=== PATIENT | female | born 1985 | race Caucasian/White ===

== ENCOUNTER 2019-03-19 14:58 | Inpatient (IN) | payer OTHER ==
[~2019-03-19] VITALS: Ht 165.1 cm; Wt 72.7 kg
[~2019-03-19 14:58] MED LIST: CYCLOBENZAPRINE10 MG PO; DEMEROL50 MG PO; VIMOVO 375-201 EACH PO
--- NOTE | 2019-03-19 15:53 | NUR ---
DIRECT ADMIT FROM DR. CONKLIN OFFICE. SHE IS ALERT ABLE TO VOICE NEEDS. RESP WITH SOME LABOR NOTED. BBS ARE DIMINISHED WITH WHEEZES NOTED TO RIGHT SIDE. O2 WAS PLACED ON HER AT 2 L/M PER N/C DUE TO SOB. O2 SAT IS 96% ON R/A. SKIN IS W/D SHE STATES SHE HAS BEEN COUGHING AND FEELING BAD FOR A WEEK. SPUTUM IS BLOODY IN COLOR WHEN SHE COUGHS IT UP. ORIENT TO ROOM INCLUDING USE OF CL. SHE IS SITTING UP IN RECLINER IN ROOM.
[2019-03-19] MEDS ORDERED: ZITHROMAX250 MG PO (15:55)
[2019-03-19] MEDS ORDERED: WELLBUTRIN SR150 MG (15:56)
[2019-03-19] MEDS ORDERED: CLARITIN 10 MG10 MG (15:56)
[2019-03-19 16:00] VITALS: BP 166/98
[2019-03-19 16:26] LABS: BASOPHILS 0.1 % (0-2); EOSINOPHILS 0.3 % (0-7); HEMATOCRIT 40.2 % (36.0-48.0); IMMATURE GRANULOCYTES 0.5 % (0-5); LYMPHOCYTES 6.6 % (15-50); MCH 27.5 pg (26.0-34.0); MCHC 32.3 g/dL (31.0-37.0); MCV 85.2 fL (80.0-100.0); MEAN PLATELET VOLUME 10.3 fL (7.4-10.4); MONOCYTES 5.2 % (2-11); NEUTROPHILS 87.3 % (40-80); RBC 4.72 10x6/uL (4.00-5.40); RDW 13.5 % (11.5-14.5); WBC 14.9 10x3/uL (4.8-10.8)
[2019-03-19 16:30] LABS: ALBUMIN 3.4 g/dL (3.4-5.0); ALKALINE PHOSPHATASE 119 U/L (46-116); ALT (SGPT) 18 U/L (10-68); BILIRUBIN - TOTAL 0.76 mg/dL (0.2-1.3); CALC OSMOLALITY 273 mosm/kg (275-300); CALCIUM 8.8 mg/dL (8.5-10.1); CARBON DIOXIDE 25.2 mmol/L (21.0-32.0); CHLORIDE - SERUM 101 mmol/L (98-107); CREATININE - SERUM 0.7 mg/dL (0.6-1.3); GLUCOSE 103 mg/dL (74-106); POTASSIUM - SERUM 3.7 mmol/L (3.5-5.1); PROTEIN - SERUM 7.6 g/dL (6.4-8.2); SODIUM 138 mmol/L (136-145); UREA NITROGEN 7 mg/dL (7-18); eGFR NON AFRICAN AMERICAN > 90 mL/min (90-120)
[2019-03-19 16:48] LABS: PLATELET COUNT 272 10x3/uL (130-400)
--- NOTE | 2019-03-19 18:30 | NUR ---
SPOKE WITH ZANDER FISHMAN CONCERNING HER PAIN AND COUGH. NEW ORDERS WERE GIVEN.
--- NOTE | 2019-03-19 18:40 | NUR ---
IV SITE IS INFILTRATED AT THIS TIME, WARM TOWEL WAS APPLIED AND I LET ONCOMING SHIFT KNOW OF NEED FOR NEW ONE AND NEED FOR LEVAQUIN THAT I STARTED BUT WAS UNABLE TO COMPLETE.
--- NOTE | 2019-03-19 18:55 | NUR ---
EVENING ROUNDS COMPLETE. PT SITTING UP ON SIDE OF BED WITH FAMILY AT BEDSIDE. NO SIGNS OF DISTRESS. AAOX4. PT DENIES ANY NEEDS AT THIS TIME. PT HAS NO IV ACCESS AT THIS TIME. CL IN REACH, BED IN LOWEST POSITION.
[2019-03-19 19:32] VITALS: BP 166/80; Ht 165.1 cm; Wt 72.7 kg
[2019-03-19 20:48] VITALS: BP 124/79
[2019-03-20 00:02] VITALS: BP 116/73
[2019-03-20 04:30] VITALS: BP 135/78
[2019-03-20 05:41] LABS: BASOPHILS 0.1 % (0-2); EOSINOPHILS 0.7 % (0-7); HEMATOCRIT 35.9 % (36.0-48.0); HEMOGLOBIN 11.5 g/dL (12-16); IMMATURE GRANULOCYTES 0.4 % (0-5); LYMPHOCYTES 7.5 % (15-50); MCH 27.3 pg (26.0-34.0); MCV 85.1 fL (80.0-100.0); MEAN PLATELET VOLUME 10.3 fL (7.4-10.4); MONOCYTES 7.7 % (2-11); NEUTROPHILS 83.6 % (40-80); PLATELET COUNT 251 10x3/uL (130-400); RBC 4.22 10x6/uL (4.00-5.40); RDW 13.6 % (11.5-14.5); WBC 12.1 10x3/uL (4.8-10.8)
[2019-03-20 06:05] LABS: ALBUMIN 2.7 g/dL (3.4-5.0); ALKALINE PHOSPHATASE 113 U/L (46-116); ALT (SGPT) 16 U/L (10-68); BILIRUBIN - TOTAL 0.72 mg/dL (0.2-1.3); CALC OSMOLALITY 273 mosm/kg (275-300); CALCIUM 8.4 mg/dL (8.5-10.1); CARBON DIOXIDE 23.8 mmol/L (21.0-32.0); CHLORIDE - SERUM 102 mmol/L (98-107); CREATININE - SERUM 0.6 mg/dL (0.6-1.3); GLUCOSE 117 mg/dL (74-106); PHOSPHOROUS 3.4 mg/dL (2.5-4.9); POTASSIUM - SERUM 3.4 mmol/L (3.5-5.1); PROTEIN - SERUM 6.3 g/dL (6.4-8.2); SODIUM 137 mmol/L (136-145); UREA NITROGEN 9 mg/dL (7-18); eGFR NON AFRICAN AMERICAN > 90 mL/min (90-120)
--- NOTE | 2019-03-20 07:10 | NUR ---
PT RESTING, EYES CLOSED. RR EVEN AND UNLABORED. NO DISTRESS NOTED. BED IN LOWEST POSITION. WILL CONTINUE TO MONITOR.
[2019-03-20 08:00] VITALS: BP 131/79
[2019-03-20 12:00] VITALS: BP 135/72
[2019-03-20 16:00] VITALS: BP 148/77
--- NOTE | 2019-03-20 16:19 | MORECARE ---
CASE MANAGEMENT DISCHARGE SUMMARY PATIENT: SUKHI NEGRON UNIT: [id number] ADM DATE: 03/19/19 AGE: 33 : 85 SEX: F ROOM/BED: D.2106 AUTHOR: LEON,DOC PHYSICIAN: REFERRING PHYSICIAN: BECKI CONKLIN MD DATE OF SERVICE: 03/20/19 Discharge Plan Patient Name: SUKHI NEGRON Facility: [facility]:[place] : 1985 Planned Disposition: Home Anticipated Discharge Date: 03/22/19 Discharge Date: Expected LOS: 3 Initial Reviewer: [email or web address] Initial Review Date: 03/19/2019 Generated: 03/20/19 5:19 pm Comments DCP- Discharge Planning Updated by [email or web address]: Ingris Dang on 03/20/19 3:[address] DC PLAN: Return home with spouse independently. ANTICIPATED DC NEEDS: Denied known dc needs. CM met with patient to complete initial dc planning assessment. CM educated patient on the CM role and verbal consent given by patient to complete assessment. CM verified patient's address, phone number, and emergency contact phone numbers. Patient lives at home with her . 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 At discharge patient plans to return home and feels this is a safe discharge. CM discussed availability of home health, rehab services, and medical equipment. Patient denied known discharge needs at this time. Patient reports her will transport her home at time of discharge. CM will continue to follow and will assist as needed with dc plans/needs. Ingris Dang RN, [facility] DCPIA - Discharge Planning Initial Assessment Updated by [email or web address]: Ingris Dang on 03/20/19 4:14 pm * Is the patient Alert and Oriented? Yes * How many steps to enter\exit or inside your home? * PCP Dr. Church * Pharmacy [facility] [address] * Preadmission Environment Home with Family * ADLs Independent * Equipment Cane Nebulizer * Other Equipment [place] patient is neb provider * List name and contact numbers for known caregivers / representatives who currently or will assist patient after discharge: Wilfredo Negron - Spouse- [phone] * Verbal permission to speak to the caregivers and representatives has been obtained from the patient. Yes * Community resources currently utilized None * Additional services required to return to the preadmission environment? No * Can the patient safely return to the preadmission environment? Yes * Has this patient been hospitalized within the prior 30 days at any hospital? No Patient Name: SUKHI NEGRON Page [id number] at 1619 All edits/amendments must be made on the electronic document DICTATION DATE: 03/20/191618 HEDGE TRIMMER: JOSE 03/20/191618 RPT#: [id number] DC DATE: STATUS: ADM IN [facility] [address] [place] [address] END OF REPORT
--- NOTE | 2019-03-20 18:55 | NUR ---
EVENING ROUNDS COMPLETE. PT SITTING UP ON SIDE OF BED. FAMILY AT BEDSIDE. NO SIGNS OF DISTRESS. PT DENIES ANY PAIN OR NEEDS AT THIS TIME. CL IN REACH, BED IN LOWEST POSITION.
[2019-03-20 21:04] VITALS: BP 122/53
[2019-03-21 00:24] VITALS: BP 136/73
[2019-03-21 04:30] VITALS: BP 103/49
[2019-03-21 05:18] LABS: BASOPHILS 0 % (0-2); EOSINOPHILS 0.9 % (0-7); HEMATOCRIT 35.5 % (36.0-48.0); HEMOGLOBIN 11.6 g/dL (12-16); IMMATURE GRANULOCYTES 0.7 % (0-5); LYMPHOCYTES 12.7 % (15-50); MCH 27.6 pg (26.0-34.0); MCHC 32.7 g/dL (31.0-37.0); MCV 84.3 fL (80.0-100.0); MEAN PLATELET VOLUME 10.1 fL (7.4-10.4); MONOCYTES 7.7 % (2-11); PLATELET COUNT 291 10x3/uL (130-400); RBC 4.21 10x6/uL (4.00-5.40); RDW 13.9 % (11.5-14.5)
[2019-03-21 05:55] LABS: ALBUMIN 2.6 g/dL (3.4-5.0); ALKALINE PHOSPHATASE 120 U/L (46-116); ALT (SGPT) 15 U/L (10-68); BILIRUBIN - TOTAL 0.49 mg/dL (0.2-1.3); CALCIUM 8.5 mg/dL (8.5-10.1); CARBON DIOXIDE 28.8 mmol/L (21.0-32.0); CHLORIDE - SERUM 100 mmol/L (98-107); CREATININE - SERUM 0.7 mg/dL (0.6-1.3); GLUCOSE 113 mg/dL (74-106); MAGNESIUM - SERUM 1.9 mg/dL (1.8-2.4); PHOSPHOROUS 4.1 mg/dL (2.5-4.9); POTASSIUM - SERUM 3.3 mmol/L (3.5-5.1); PROTEIN - SERUM 7.3 g/dL (6.4-8.2); SODIUM 137 mmol/L (136-145); eGFR NON AFRICAN AMERICAN > 90 mL/min (90-120)
[2019-03-21 06:04] LABS: CALC OSMOLALITY 272 mosm/kg (275-300); UREA NITROGEN 6 mg/dL (7-18)
--- NOTE | 2019-03-21 07:29 | NUR ---
REPORT RECIEVED. PT SITTING FOWLERS IN BED. RR EVEN AND UNLBAORED. SHE HAS A R FA PIV THAT IS SL. BED LOCKED AND IN LOWEST POSITION, CALL LIGHT WITHIN REACH. WILL CTM
[2019-03-21] MEDS ORDERED: IPRAT-ALBUT 0.5-3 ML UPD (11:20)
[2019-03-21] MEDS ORDERED: MUCINEX600 MG PO (11:20)
[2019-03-21] MEDS ORDERED: TESSALON PERLE100 MG PO (11:20)
[2019-03-21] MEDS ORDERED: GUAIFEN-CODEINE10 ML PO (11:21)
[2019-03-21] MEDS ORDERED: LEVAQUIN750 MG PO (11:21)
--- NOTE | 2019-03-21 12:35 | NUR ---
WRITTEN SCRIPT TO JOSE A ARMSTRONG
--- NOTE | 2019-03-21 12:47 | NUR ---
NO FLU SHOT GIVEN PATIENT IS GOING HOME ON ANTIBIOTCS AND HAD PNEUMONIA.
[2019-03-21 13:36] VITALS: BP 147/86
--- NOTE | 2019-03-21 13:45 | NUR ---
DC PAPERWORK GONE OVER AND SIGNED WITH PT. PIV REMOVED, CATH TIP FULLY INTACT. ALL QUESTIONS ANSWERED. VALUBLES REMOVED FROM ROOM. PT TRANSPORTED TO FRONT ENTRANCE VIA WHEELCHAIR.
--- NOTE | 2019-03-22 07:02 | MORECARE ---
CASE MANAGEMENT DISCHARGE SUMMARY PATIENT: SUKHI NEGRON UNIT: [id number] ADM DATE: 03/19/19 AGE: 33 : 85 SEX: F ROOM/BED: D.2104 AUTHOR: LEON,DOC PHYSICIAN: REFERRING PHYSICIAN: BECKI CONKLIN MD DATE OF SERVICE: 03/22/19 Discharge Plan Patient Name: SUKHI NEGRON Facility: [facility]:[place] : 1985 Planned Disposition: Home Anticipated Discharge Date: 03/21/19 Discharge Date: 03/21/2019 Expected LOS: 2 Initial Reviewer: [email or web address] Initial Review Date: 03/19/2019 Generated: 03/22/19 8:02 am Comments DCP- Discharge Planning Updated by [email or web address]: Ingris Dang on 03/20/19 3:[address] DC PLAN: Return home with spouse independently. ANTICIPATED DC NEEDS: Denied known dc needs. CM met with patient to complete initial dc planning assessment. CM educated patient on the CM role and verbal consent given by patient to complete assessment. CM verified patient's address, phone number, and emergency contact phone numbers. Patient lives at home with her . 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 At discharge patient plans to return home and feels this is a safe discharge. CM discussed availability of home health, rehab services, and medical equipment. Patient denied known discharge needs at this time. Patient reports her will transport her home at time of discharge. CM will continue to follow and will assist as needed with dc plans/needs. Ingris Dang RN, [facility] DCPIA - Discharge Planning Initial Assessment Updated by [email or web address]: Ingris Dang on 03/20/19 4:14 pm * Is the patient Alert and Oriented? Yes * How many steps to enter\exit or inside your home? * PCP Dr. Church * Pharmacy [facility] [address] * Preadmission Environment Home with Family * ADLs Independent * Equipment Cane Nebulizer * Other Equipment [place] [facility] patient is neb provider * List name and contact numbers for known caregivers / representatives who currently or will assist patient after discharge: Wilfredo Negron - Spouse- [phone] * Verbal permission to speak to the caregivers and representatives has been obtained from the patient. Yes * Community resources currently utilized None * Additional services required to return to the preadmission environment? No * Can the patient safely return to the preadmission environment? Yes * Has this patient been hospitalized within the prior 30 days at any hospital? No Last DP export: 03/20/19 3:19 Patient Name: SUKHI NEGRON Page [id number] at 0702 All edits/amendments must be made on the electronic document DICTATION DATE: 03/22/19701 CONSERVATION EDUCATOR: DM 03/22/19701 RPT#: [id number] DC DATE:03/21/19 STATUS: DIS IN [facility] [address] [place] [address] END OF REPORT
== END 2019-03-21 14:04 | disposition home or self-care (01) | DRG 194 ==
LOC: D.M2 14:58 → D.SDCHOLD 14:58 → D.M2 15:25
PROVIDERS: ADMIT Family Medicine; ATTEND Family Medicine
DX: J18.9 Pneumonia, unspecified organism (principal); J45.901 Unspecified asthma with (acute) exacerbation; J98.11 Atelectasis; F32.9 Major depressive disorder, single episode, unspecified